=== PATIENT | female | born 1965 | race Caucasian/White ===

== ENCOUNTER → 2018-11-13 | Outpatient (CLI) | payer MEDICAID, MEDICARE ==
[2016-02-15 13:49] VITALS: BP 100/64
[~2018-11-13] MED LIST: ACET500T33 PO; ACET500T68 PO; ASPI-630 PO; CYCL10TA2 PO; DICL75TA PO; GABA300C18 PO; IRON18TA PO; LISI10TA2 PO; LISI1TAB7 PO; NAPR220T70 PO; ONDA4TAB10 SL; ONDA4TAB12 PO; OXYC1TAB19 PO; OXYC1TAB7 PO; PROC10TA57 PO; SENN-22 PO; TRAM50TA PO; WARF3TAB54 PO
--- NOTE | 2018-11-13 11:59 | KCIC ---
EXAM: Dual energy x-ray absorptiometry (DEXA). HISTORY: Postmenopausal female presents for osteoporosis screening. COMPARISON: None. TECHNIQUE: Dual energy x-ray absorptiometry of the lumbar spine and left hip was performed. Calculation of bone mineral density based on standard deviations above or below the expected young adult normal value (T-score) was completed. FINDINGS: The average bone mineral density in the 1st through 4th lumbar vertebrae is 0.939 g/cmxcm, corresponding with a T-score of -1.0. The average total bone mineral density in the left hip is 0.757 g/cmxcm, corresponding with a T-score of -1.5. IMPRESSION: 1. Osteopenia measured at the left hip. 2. Borderline osteopenia measured at the lumbar spine. Note: Definitions established by the [employer]: 1. Normal: T-score is -1.0 or above. 2. Osteopenia: T-score is between -1.0 and -2.5 . 3. Osteoporosis: T-score is -2.5 or below. Electronically signed by: Jeanette Flores MD (11/13/2018 11:56 AM) [place] [id number]
== END | disposition home or self-care (01) ==
LOC: KCIC DEXA 11:09
PROVIDERS: ATTEND Nurse Practitioner Family
DX: Z13.820 Encounter for screening for osteoporosis (principal); M85.88 Other specified disorders of bone density and structure, other site; N95.9 Unspecified menopausal and perimenopausal disorder; Z96.649 Presence of unspecified artificial hip joint
CPT/HCPCS: 77080